=== PATIENT | female | born 1990 | race Caucasian/White ===

== ENCOUNTER 2019-01-03 05:32 | Day surgery (SDC) | payer BC ==
[~2019-01-03] VITALS: Ht 162.6 cm; Wt 63.5 kg
[2019-01-03] VITALS (13 sets, daily range): BP systolic 88–142; BP diastolic 78–91
[2019-01-03] MEDS ORDERED: MINOXIDIL2.5 MG PO (06:16)
[2019-01-03] MEDS ORDERED: TESTOSTERO100 MG/1 M IM (06:16)
[2019-01-03] MEDS ORDERED: PROSCAR5 MG ORAL (06:16)
[2019-01-03] MEDS ORDERED: fentaNYL 100 mcg/2 mL IV ONE ×2 (06:38→10:27)
[2019-01-03] MEDS ORDERED: Sodium Chloride 10ml vial INJ ONE (06:39)
[2019-01-03] MEDS ORDERED: Lidocaine 1% MPF 10mg/ml 5ml ONE ×2 (06:39→10:27)
[2019-01-03] MEDS ORDERED: Dexamethasone 4mg/ml vial ONE (06:39)
[2019-01-03] MEDS ORDERED: Lidocaine 1% Plain 30 ml INJ ONE (06:59)
[2019-01-03] MEDS ORDERED: ceFAZolin sod 2 GM in NS 55 ML IVPB ONE (07:00)
[2019-01-03] MEDS ORDERED: Lidocaine 1% 10mg/ml/EPI 0.01mg/ml 30ml INJ ONE (07:11)
[2019-01-03] MEDS ORDERED: Bacitracin Oint 15gm Tube TOPIC ONE (07:11)
[2019-01-03] MEDS ORDERED: Bupivacaine 0.25% Inj 30ml INJ ONE (07:11)
[2019-01-03] MEDS ORDERED: Muri-Lube ONE (07:11)
[2019-01-03] MEDS ORDERED: Zemuron 50mg/5ml Inj IV ONE (07:15)
[2019-01-03] MEDS ORDERED: Dyna-Hex 2% Top Sol 2oz TOPIC ONE (07:16)
[2019-01-03] MEDS ORDERED: LR 1000ml 1,000 ML IVLG SCH (07:20)
--- NOTE | 2019-01-03 07:21 | Pre-Procedure Note/Attestation ---
Pre-Procedure Note/Attestation Complete Prior to Procedure Planned Procedure: bilateral Indications for Procedure Pre-Operative Diagnosis: gender identity disorder Attestation I attest that I discussed the nature of the procedure; its benefits; risks and complications; and alternatives (and the risks and benefits of such alternatives ), prior to the procedure, with the patient (or the patient's legal media sales representative). I attest that, if there was a reasonable possibility of needing a blood transfusion, the patient (or the patient's legal media sales representative) was given the [facility] standardized written summary, pursuant to the Chuy Mackey Blood Safety Act ([place] Health and Safety Code # 1645, as amended). I attest that I re-evaluated the patient just prior to the surgery and that there has been no change in the patient's H&P, except as documented below: Kelvin Reddy MD Jan 03, 2019 07:21
--- NOTE | 2019-01-03 07:22 | Anethesia Preoperative Eval ---
Anesthesia Pre-op PMH/ROS General Date of Evaluation: Jan 03, 2019 Time of Evaluation: 07:24 Anesthesiologist: Meera ASA Score: ASA 2 Mallampati Score Class I : Soft palate, uvula, fauces, pillars visible Class II: Soft palate, uvula, fauces visible Class III: Soft palate, base of uvula visible Class IV: Only hard plate visible Mallampati Classification: Class II Surgeon: Maureen Diagnosis: Gender Dysphoria Surgical Procedure: Bilateral Mastectomy Anesthesia History: none Family History: no anesthesia problems Allergies: Coded Allergies: No Known Allergies (Unverified , 01/02/19) Medications: see eMAR Patient NPO?: Yes Past Medical History Pulmonary: Reports: asthma Neurologic/Psychiatric: Reports: depression/anxiety Anesthesia Pre-op Phys. Exam Physician Exam Last Vital Signs Date Time Temp Pulse Resp B/P (MAP) Pulse Ox O2 Delivery O2 Flow Rate FiO2 01/03/19 06:17 Room Air 01/03/19 06:12 97.5 73 18 138/78 99 Constitutional: NAD Neurologic: CN 2-12 intact Cardiovascular: RRR Respiratory: CTA Gastrointestinal: S/NT/ND Airway Exam Mallampati Score: Class II MO: full ROM: full Teeth: intact Anesthesia Pre-op A/P Labs Urine Test Test 01/03/19 05:45 Urine HCG, Qualitative Negative (NEGATIVE) Risk Assessment & Plan Assessment: ASA 2 Plan: GA, SED, GlideScope Go Status Change Before Surgery: No Pre-Antibiotics Dru Grams Ancef IV Given Within 1 Hr of Incision: Yes Time Given: 07:36 Brenden Estes MD Jan 03, 2019 07:22
[2019-01-03] MEDS ORDERED: LORazepam Inj 2mg/ml 1ml IV PRN (07:30)
[2019-01-03] MEDS ORDERED: oxyCODONE HCL/Acetaminophen 5/325mg ORAL PRN (07:30)
[2019-01-03] MEDS ORDERED: LR 1000ml ONE (07:30)
[2019-01-03] MEDS ORDERED: Naloxone 0.4mg/ml Inj ONE (07:30)
[2019-01-03] MEDS ORDERED: fentaNYL 100 mcg/2 mL IV PRN (07:30)
[2019-01-03] MEDS ORDERED: Meperidine 50mg/ml Inj(FOR RIGORS ONLY) IVP PRN (07:30)
[2019-01-03] MEDS ORDERED: Propofol 1,000mg/ 100ml btl IV ONE (07:30)
[2019-01-03] MEDS ORDERED: Metoclopramide 10mg/2ml Inj IVP PRN (07:30)
[2019-01-03] MEDS ORDERED: Ketorolac 30mg Inj IV PRN ×2 (07:30)
[2019-01-03] MEDS ORDERED: HYDROcodone/Acetamin 5/325 tab ORAL PRN ×2 (07:30→11:15)
[2019-01-03] MEDS ORDERED: NS Irrig 1000ml ONE (07:30)
[2019-01-03] MEDS ORDERED: Atropine Sulfate 0.4mg/ml inj IVP PRN (07:30)
[2019-01-03] MEDS ORDERED: Sterile Water Irrig 1000ml IRRIG ONE (07:30)
[2019-01-03] MEDS ORDERED: DiphenhydrAMINE 50mg/ml Inj IVP PRN (07:30)
[2019-01-03] MEDS ORDERED: Hydromorphone 0.5mg/0.5ml inj IVP PRN (07:30)
[2019-01-03] MEDS ORDERED: Acetaminophen (Non formulary) 100 ML IV ONE (07:30)
[2019-01-03] MEDS ORDERED: Labetalol 5mg/ml 20ml vial IV PRN (07:30)
[2019-01-03] MEDS ORDERED: Midazolam 2mg/2ml Inj IVP PRN (07:30)
[2019-01-03] MEDS ORDERED: HYDROcodone/Acetamin 7.5/325 tab ORAL PRN (07:30)
--- NOTE | 2019-01-03 07:32 | Immediate Post-Op Evaluation ---
Immediate Post-Op Evalulation Immediate Post-Op Evalulation Procedure: Bilateral Mastectomy Date of Evaluation: Jan 03, 2019 Time of Evaluation: 11:35 IV Fluids: 900 LR Blood Products: 0 Estimated Blood Loss: 50 Urinary Output: 0 Blood Pressure Systolic: 132 Blood Pressure Diastolic: 82 Pulse Rate: 89 Respiratory Rate: 16 O2 Sat by Pulse Oximetry: 100 Temperature (Fahrenheit): 97 Pain Score (1-10): 2 Nausea: No Vomiting: No Complications 0 Patient Status: awake, reacts, patent, extubated, none Hydration Status: adequate Dru Grams Ancef IV Given Within 1 Hr of Incision: Yes Time Given: 07:36 Brenden Estes MD Jan 03, 2019 07:32
--- NOTE | 2019-01-03 11:12 | Operative Note - PDOC ---
Operative Note Operative Note Date of Operation/Procedure: Jan 03, 2019 Pre-op Diagnosis: gender identity disorder Procedure: bilateral mastectomy, bilateral nipple areolar reconstruction Post-op Diagnosis: same as pre-op Surgeon: Maureen Anesthesiologist: Meera Anesthesia: general Specimen: yes - 1) right breast, 2) left breast Complications: none Condition: stable Estimated Blood Loss: volume - 50 cc Drains: [place] - x2 Implant(s) used?: No Kelvin Reddy MD Jan 03, 2019 11:12
--- NOTE | 2019-01-03 11:12 | Discharge Instructions ---
Discharge Instructions Discharge Instructions Follow up with: Dr smith 01/09/19 Diet: regular Resume Normal Activity?: Yes Activity: ambulate For Surgical Patients Dressing Care: keep dry and clean May shower: No - sponge bathe only For Congestive Heart Failure Reminder Report to your physician any weight gain of 5 pounds or more in one week. Kelvin Smith MD Jan 03, 2019 11:12
[2019-01-03] MEDS ORDERED: HYDROmorphone 1mg/ml Carpuject SUBQ PRN (11:15)
[2019-01-03] MEDS ORDERED: Tylenol #3 tab (300mg/30mg) ORAL PRN (11:15)
[2019-01-03] MEDS ORDERED: D5 1/2NS 1,000 ML IV SCH (15:00)
--- NOTE | 2019-01-03 17:15 | Operative Note - Dictated ---
DATE OF OPERATION: 01/03/2019 PREOPERATIVE DIAGNOSIS: Gender identity disorder. POSTOPERATIVE DIAGNOSIS: Gender identity disorder. PROCEDURES: 1. Bilateral mastectomy. 2. Bilateral nipple areola reconstruction. SURGEON: Kelvin Reddy M.D. ANESTHESIA: General. ESTIMATED BLOOD LOSS: 50 mL. SPECIMENS: 1. Right breast. 2. Left breast. DRAINS: A 15-Mosotho Darian x2. COMPLICATIONS: None. CONDITION TO RECOVERY ROOM: Stable. INDICATION FOR PROCEDURE: This is a very pleasant 28-year-old trans-male who desires top surgery mastectomy as part of his transition. He has the appropriate letter of recommendation from his therapist and meets all WPATH criteria for top surgery. I have discussed the risks, benefits, and alternatives to the procedure with him including, but not limited to, bleeding, infection, scarring, nerve injury, asymmetry, contour deformity, hematoma, seroma, loss of nipple sensation, loss of nipple graft and need for additional surgery including revisions. I discussed the orientation of the incisions and the unpredictable nature of scarring. No guarantees were made regarding the outcome. All of his questions have been answered to the best of my ability. He verbalized understanding with everything that we discussed and wishes to proceed. DESCRIPTION OF PROCEDURE: The patient was identified in the preoperative holding area and marked in the standing position. He was then brought to the operating room where he was placed in the supine position on the operating room table with his arms extended on arm boards. All bony prominences were adequately padded. Sequential compression devices were placed and intravenous antibiotics were administered. After induction of anesthesia, the patient's chest was prepped and draped in sterile fashion. Starting on the left chest first, the nipple areola complex was placed on manual stretch and a red cliff measuring 2.5 cm in diameter was drawn out centered around the nipple. The subdermal plane within this areolar marking was then infiltrated with 3 mL of 1% lidocaine with epinephrine. I then used a 15 blade scalpel to incise the areolar marking and then proceeded to harvest a full-thickness nipple areola graft. The graft was subsequently defatted, wrapped in wet gauze and placed on the back table. I then made the inframammary fold incision using a 10 blade scalpel. Dissection proceeded down to the level of the pectoralis major fascia. I then made the superior breast incision using a 10 blade scalpel and dissected down to the level of Danielle's fascia. Allis clamps were then used to retract the superior breast skin and a plane of dissection was created between the subcutaneous tissues and breast parenchyma in a superior direction toward the level of the clavicle. Afterwards, the breast parenchyma was then elevated off of the pectoralis major fascia proceeding from a medial to lateral direction. The breast specimen was then passed off the table. Hemostasis was achieved. The wound was irrigated with saline. A 15-Mosotho Darian drain was then placed within the wound and brought out through a separate stab incision and secured using 2-0 silk suture. The skin geneva were then used to temporarily reapproximate the skin. I shifted my attention to the contralateral side where the identical procedure was performed. The patient was then sat up on the operating room table and it appeared that he had very reasonable symmetry between the two sides of his chest. I then used a marking pen to draw out the proposed location of the new nipple-areolar complex on each side and these markings were confirmed with direct measurements. He was then placed back in the supine position. On each side of the chest, the skin geneva were removed. The Danielle's fascia layer was closed with interrupted 0 Vicryl suture followed by interrupted 3-0 PDS suture for the deep dermal layer and then a running 3-0 Monocryl subcuticular suture for the skin. Next, starting on the left breast first, I proceeded with the nipple areola reconstruction portion of the procedure by incising the olivia areolar marking with a 15 blade scalpel. The intervening skin was then de-epithelialized. I then brought out the left nipple areolar graft and placed it into the de-epithelialized area and inset it using a running 5-0 fast-absorbing suture. Several 2-0 silk suture ties were then placed around the periphery of the nipple areola graft. A skin graft bolster was fashioned and secured into place over the nipple graft using the silk suture ties. A 10 mL of 0.25% plain Marcaine were then injected into the left chest incision. I shifted my attention to the contralateral side where the identical procedure was performed for the right nipple areolar reconstruction. Afterwards, sterile dressings were then applied. The patient tolerated the procedure well and was sent to the recovery room in stable condition. All instrument, sharp, and sponge counts were correct at the conclusion of the case. Kelvin Reddy M.D. DR: SANDRO JOB#: [id number] CC: [email or web address]
== END 2019-01-03 13:45 | disposition home or self-care (01) ==
LOC: SUR 05:32
DX: F64.9 Gender identity disorder, unspecified (principal); F32.9 Major depressive disorder, single episode, unspecified; F41.9 Anxiety disorder, unspecified; Z79.890 Hormone replacement therapy; F17.200 Nicotine dependence, unspecified, uncomplicated
CPT/HCPCS: 19303; 19350; 81025; J0690; J1100; J2001; J2250; J2310; J2405; J2704; J3010; J3490; 94003; 94150